=== PATIENT | male | born 1940 | race Caucasian/White ===

== ENCOUNTER → 2018-11-02 | Outpatient (CLI) | payer MEDICARE ==
[~2018-11-02] MED LIST: BENAZEPRIL10 MG PO; LIPITOR20 MG PO
== END ==
LOC: COL.RAD 09:01
DX: G31.9 Degenerative disease of nervous system, unspecified (principal)

== ENCOUNTER 2018-11-14 08:40 | Outpatient (CLI) | payer MEDICARE ==
[2018-11-14] VITALS (7 sets, daily range): BP systolic 125–157; BP diastolic 68–97; PULSE 61–68; TEMP 98.1
[~2018-11-14] VITALS: Ht 162.6 cm; Wt 82.2 kg
[~2018-11-14 08:40] MED LIST changes: -BENAZEPRIL10 MG PO; +GLUCOPHAGE500 MG/TAB PO; +GLUCOTROL 5M5 MG/TAB PO; +LOTENSIN 1010 MG/TAB PO; +TRULICITY0.75 MG/0. SQ
--- NOTE | 2018-11-14 10:45 | NUR ---
Pt to [facility] 9 per cart s/p LP. Pt resting well, at bedside.
[2018-11-14 11:15] LABS: CSF MONONUCLEAR 25 % (70-100); CSF POLYMORPHONUCLEAR 75 % (0-6)
[2018-11-14 11:18] LABS: CSF APPEARANCE CLEAR; CSF COLOR PINK; CSF RBC 300 /mm3 (0-0)
[2018-11-14 11:33] LABS: GLUCOSE,CSF 82 mg/dL (40-70); TOTAL PROTEIN,CSF 82 mg/dL (15-45)
--- NOTE | 2018-11-14 11:47 | NUR ---
Pt has ambulated c SBA, voided and karl PO intake s n/v.
--- NOTE | 2018-11-14 11:50 | NUR ---
PT here to evaluate pt's gait.
--- NOTE | 2018-11-14 12:10 | NUR ---
Pt discharged per w/c by nurse with .
== END 2018-11-14 13:56 | disposition home or self-care (01) ==
LOC: COL.RAD 08:40
PROVIDERS: Internal Medicine
DX: G91.1 Obstructive hydrocephalus (principal); R27.0 Ataxia, unspecified

== ENCOUNTER 2019-04-04 11:00 | Outpatient (RCR) | payer MEDICARE | END 2019-06-11 | disposition still patient (30) | LOC: WSC | DX: G91.2 (Idiopathic) normal pressure hydrocephalus (principal); M54.12 Radiculopathy, cervical region ==

== ENCOUNTER → 2020-02-08 | Outpatient (CLI) | payer MEDICARE | LOC: COL.RAD 11:15 | DX: G91.2 (Idiopathic) normal pressure hydrocephalus (principal); Z98.2 Presence of cerebrospinal fluid drainage device ==

== ENCOUNTER 2020-04-10 11:15 | Outpatient (RCR) | payer MEDICARE | END 2020-06-23 | disposition home or self-care (01) | LOC: WSST | DX: R41.841 Cognitive communication deficit (principal); G91.2 (Idiopathic) normal pressure hydrocephalus ==